=== PATIENT | male | born 1955 | race Caucasian/White ===

== ENCOUNTER → 2016-11-27 | Outpatient (CLI) | payer MEDICARE ==
--- NOTE | 2016-11-27 12:52 | KCIC ---
PROCEDURE MRI lumbar spine without contrast. HISTORY Low back pain. Surgery over 20 years ago. Stiffness. Left lower extremity pain and numbness. TECHNIQUE Sagittal T1, sagittal T2, sagittal STIR, axial T1, and axial T2 sequences are provided. COMPARISON July 09, 2011. FINDINGS Mild wedging anteriorly of L1 is similar to prior. L5 and S1 may be partially fused. Decompression is noted at L5. There is no worrisome marrow lesion. There is no marrow edema. Conus medullaris is normal in signal intensity and in position. Subcutaneous edema is noted. The numbering system assumes 5 lumbar type vertebral bodies. Findings by individual level are as follows: T11-T12: There is a mild disc bulge and a left paracentral protrusion. There is mild facet hypertrophy. There is left lateral recess narrowing. There is minimal left foraminal narrowing. T12-L1: Large disc osteophyte complex is noted. This has a left paracentral protruding component. There is facet hypertrophy. Midline AP diameter of the thecal sac is narrowed to 8 millimeters. There is no foraminal narrowing. L1-L2: Disc bulge and facet hypertrophy are noted with mild foraminal narrowing. L2-L3: There is a diffuse disc bulge. There is a left foraminal/far lateral protrusion. There is facet hypertrophy. There is mild left lateral recess narrowing. There is moderate left and [id number] right foraminal narrowing. L3-L4: Mild disc bulge and facet hypertrophy are noted without canal or foraminal compromise. L4-L5: There is a diffuse disc bulge. There is marked facet hypertrophy and there is ligamentum flavum hypertrophy. Midline AP diameter of the thecal sac is narrowed to 6 millimeters. There is minimal CSF surrounding the nerve roots at this level. There is lateral recess narrowing bilaterally, could explain an L5 radiculopathy. There is also high-grade bilateral foraminal narrowing which could explain an L4 radiculopathy, foraminal narrowing greater on the left. Findings are similar to prior. L5-S1: There is endplate irregularity. There is no canal stenosis post decompression. There is facet hypertrophy, probably fusion across the facet joints. Mild foraminal narrowing is suspected. Overall, appearance probably unchanged when compared to 2011. IMPRESSION 1. Degenerative disc disease and facet and ligamentum flavum hypertrophy remain most notable at L4-L5. High-grade canal stenosis is noted at this level. 2. There are additional levels of foraminal narrowing and lateral recess narrowing, as described above. 3. Overall, appearance is probably unchanged when compared to the 2011 examination performed on a low field strength magnet. Electronically signed by: Jassi Michael MD (Nov 27, 2016 12:51:46)
== END | disposition home or self-care (01) ==
LOC: KCIC MRI 10:11
PROVIDERS: ATTEND Nurse Practitioner
DX: M51.36 Other intervertebral disc degeneration, lumbar region (principal)
CPT/HCPCS: 72148